=== PATIENT | male | born 2005 | race Caucasian/White ===

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

== ENCOUNTER 2024-09-02 10:54 | Outpatient (CLI) | payer BC, SELFPAY ==
--- NOTE | ~2024-09-02 | XR_ITS ---
EXAMINATION: XR ankle RT min 3V DATE: 09/02/2024 11:18 INDICATION: Right ankle injury and sprain. TECHNIQUE: 4 views of right ankle were obtained. COMPARISON: None. FINDINGS: Alignment is normal. There are small fragments of heterotopic ossification distal to medial and lateral malleoli. Joint spaces are normal. There is heterotopic ossification at dorsal aspect of talonavicular joint. There is ankle soft tissue swelling. IMPRESSION: 1. Small fragments of heterotopic ossification distal to medial and lateral malleoli, which may be ac conrad avulsion fractures or chronic findings. Reviewed, dictated and finalized at location A. IMPRESSION: 1. Small fragments of heterotopic ossification distal to medial and lateral mal leoli, which may be acute avulsion fractures or chronic findings.
--- OUTSIDE RECORDS SUMMARY | 2024-09-02 12:59 | XMS_ITS | Clinical Summary ---
Author Organization [facility] Address [address] [place] [id number] Care Team Providers Care Monomer Recovery Supervisor Name Role Phone Lv Stinson MD Primary Care Provide r Allergies No known active allergies Medications amoxicillin (AMOXIL) 250 mg capsule Take 250 mg by mouth 3 (three) times a day Active Active Problems No known active problems Surgical History Surgery Date Site/Laterality Comments TONSILLECTOMY Family History Medical History Relation Name Comments Hypertension Father Relation Name Status Comments Father Social History Tobacco Use Types Packs/Day Years Used Date Smoking Tobacco: Never Smokeless Tobacco: Never Personal Safety Answer Date Recorded Getting School Help Needed Not on file 08/24 Sex and Gender Information Value Date Recorded Sex Assigned at Not on file 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 Gender Identity Not on file Sexual Orientation Not on file Obstetrics History Last Filed Vital Signs Vital Sign Reading Time Taken Comments Blood Pressure - - Pulse - - Temperature - - Respiratory Rate - - Oxygen Saturation - - Inhaled Oxygen Concentration - - Weight 24.1 kg (53 lb 2.1 oz) 01/08/2010 2:01 PM CDT Height - - Body Mass Index - - Plan of Treatment Health Maintenance Due Date Last Done Comments Depression Screening 2003 Hepatitis C Screening 2003 DTaP/Tdap/Td Vaccine (2 - Tdap) 2014 2003 Meningococcal B Vaccine (1 of 2 - Standard) 2019 HPV Vaccines (3 - Male 3-dose series) 06/15/2020 03/23/2020, 12/14/2018 Regular Well Visit/Exam 18-64 2021 Covid-19 Vaccine (3 - season) 2024 01/02/2021, 11/16/2020 Influenza Vaccine (#1) 2024 , 03/23/2020, 03/28/2019, Additional history exists Hepatitis B Screening Completed 03/19/2004 , 2003, 2003 Varicella Vaccines Completed 01/04/2008, 07/09/2004 Meningococcal Vaccine Completed 03/23/2020, 015 Pneumococcal vaccine <65 Aged Out No longer eligible based on patient's age to complete this topic [place] Care Teams Monomer Recovery Supervisor Relationship Specialty Start Date End Date Lv Stinson MD [address] [place] [address] PCP - General Family Medicine 06/21/21
--- OUTSIDE RECORDS SUMMARY | 2024-09-02 12:59 | XMS_ITS | Referral Summary ---
Author Organization [facility] Address [address] [place] [id number] Care Team Providers Care Heel Slugger Name Role Phone Lv Stinson MD Primary Care Provide r Allergies No known active allergies Medications amoxicillin (AMOXIL) 250 mg capsule Take 250 mg by mouth 3 (three) times a day Active Active Problems No known active problems Social History Tobacco Use Types Packs/Day Years Used Date Smoking Tobacco: Never Smokeless Tobacco: Never Personal Safety Answer Date Recorded Getting School Help Needed Not on file 08/24 Sex and Gender Information Value Date Recorded Sex Assigned at Not on file 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
== END 2024-09-02 10:55 | disposition home or self-care (01) ==
LOC: ANHIMG 11:00
PROVIDERS: PCP Internal Medicine; Visit Provider Internal Medicine
DX: S93.401A Sprain of unspecified ligament of right ankle, initial encounter (principal); X58.XXXA Exposure to other specified factors, initial encounter
CPT/HCPCS: 73610